=== PATIENT | male | born 1960 | race Caucasian/White ===

== ENCOUNTER → 2023-06-12 18:56 | Outpatient (REF) | payer MEDICARE, SELFPAY | LOC: MRI 18:56 | PROVIDERS: ATTENDING PHYSICIAN Specialist; FAMILY PHYSICIAN Internal Medicine Geriatric Medicine | DX: M25.562 Pain in left knee (principal) | CPT/HCPCS: 73721 ==

== ENCOUNTER 2023-08-27 05:54 | Day surgery (SDC) | payer MEDICARE, SELFPAY ==
[2023-08-27] VITALS (11 sets, daily range): BP systolic 86–125; BP diastolic 58–80; BMI 33.0
[2023-08-27] MEDS: NORMOSOL-R 1000 IV (06:29)
[2023-08-27] MEDS: TYLENOL 1000 MG PO (06:29)
[2023-08-27 06:37] LABS: Glucose - Point of Care 122 mg/dl (70-99)
== END 2023-08-27 09:10 | disposition home or self-care (01) ==
LOC: SDS 05:54
PROVIDERS: ATTENDING PHYSICIAN Orthopaedic Surgery Hand Surgery
DX: G56.02 Carpal tunnel syndrome, left upper limb (principal)
CPT/HCPCS: 29848; 82962

== ENCOUNTER → 2023-09-16 18:24 | Outpatient (REF) | payer MEDICARE, SELFPAY | LOC: PAVMRI 18:24 | PROVIDERS: ATTENDING PHYSICIAN Specialist; FAMILY PHYSICIAN Internal Medicine Geriatric Medicine | DX: M25.561 Pain in right knee (principal) | CPT/HCPCS: 73721 ==

== ENCOUNTER → 2023-12-06 13:38 | Outpatient (REF) | payer MEDICARE, SELFPAY | LOC: SDSPAT 13:38 | PROVIDERS: ATTENDING PHYSICIAN Orthopaedic Surgery Hand Surgery; FAMILY PHYSICIAN Internal Medicine Geriatric Medicine; OTHER PHYSICIAN Internal Medicine Hematology & Oncology; OTHER PHYSICIAN Nuclear Medicine Nuclear Cardiology; OTHER PHYSICIAN Specialist | DX: M75.121 Complete rotator cuff tear or rupture of right shoulder, not specified as traumatic (principal) | CPT/HCPCS: 36415; 93005 ==

== ENCOUNTER 2023-12-18 06:16 | Day surgery (SDC) | payer MEDICARE, SELFPAY ==
[2023-12-06 13:49] VITALS: BMI 35.8
--- NOTE | 2023-12-11 15:22 | PTCARENOTE ---
Abnormal EKG reviewed by Dr. Dias, no further action requested.
[2023-12-18] VITALS (10 sets, daily range): BP systolic 113–150; BP diastolic 58–74; BMI 35.8
[2023-12-18 11:19] LABS: Glucose - Point of Care 132 mg/dl (70-99)
[2023-12-18] MEDS: TYLENOL 1000 MG PO (11:42)
[2023-12-18] MEDS: NORMOSOL-R/PLASMALYTE-A 1000 IV (11:42)
[2023-12-18] MEDS: DILAUDID 0.25 MG IV ×3 (15:01→15:23)
== END 2023-12-18 17:05 | disposition home or self-care (01) ==
LOC: SDS 06:16
PROVIDERS: ATTENDING PHYSICIAN Orthopaedic Surgery Hand Surgery; FAMILY PHYSICIAN Internal Medicine Geriatric Medicine
DX: S46.211A Strain of muscle, fascia and tendon of other parts of biceps, right arm, initial encounter (principal); X58.XXXA Exposure to other specified factors, initial encounter; M75.121 Complete rotator cuff tear or rupture of right shoulder, not specified as traumatic; M75.41 Impingement syndrome of right shoulder; M75.91 Shoulder lesion, unspecified, right shoulder
CPT/HCPCS: 23430; 29827; 29826; 82962

== ENCOUNTER → 2024-07-25 06:37 | Outpatient (REF) | payer MEDICARE, SELFPAY | LOC: PAVMRI 06:37 | PROVIDERS: ATTENDING PHYSICIAN Specialist | DX: M25.561 Pain in right knee (principal) | CPT/HCPCS: 73721 ==

== ENCOUNTER → 2024-09-22 13:07 | Outpatient (REF) | payer MEDICARE, SELFPAY | LOC: RCS 13:07 | PROVIDERS: ATTENDING PHYSICIAN Specialist; FAMILY PHYSICIAN Internal Medicine Geriatric Medicine | DX: Z01.818 Encounter for other preprocedural examination (principal) | CPT/HCPCS: 93005 ==

== ENCOUNTER 2024-12-22 19:27 | Inpatient (IN) | payer MEDICARE, SELFPAY ==
[2024-12-22] VITALS (8 sets, daily range): BP systolic 124–164; BP diastolic 60–79; BMI 36.9; BMI 37.2
--- NOTE | 2024-12-22 17:21 | EDRN ---
the pt stated he had an outpatient chest xray done at today. ER Dr Mclaughlin reviewed the pts chest xray from earlier today. Per ER Dr Mclaughlin, the pts Left chest PORT is approved to be used for medications, infusions, and bloodwork. 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
--- NOTE | 2024-12-22 17:21 | ED.GENMED ---
History of Present Illness
General
Chief Complaint: Abnormal Lab Value
Source: patient and records
Exam Limitations: none
Time Seen by Provider: 12/22/24 17:05
Nursing documentation reviewed up to this point in time: agreed with
History of Present Illness
History of Present Illness:
64-year-old male with extensive history as documented notable for renal cell carcinoma currently on immunotherapy ([place]) who presents to the ER for evaluation of chest pain and hemoptysis. Patient reports that he started having some chest
discomfort a few days ago that he attributed to muscle strain from picking up a cat. He says that over the past few days he has developed a mild cough and this morning he started having faraz mopped assist. He spoke with his primary care physician
who sent him for some outpatient testing and found an elevated D-dimer and so he was referred to the ER to be evaluated for PE. Aside from chest pain and hemoptysis he also reports some increased fatigue over the past week or so. He has not
noticed any swelling in the legs but says that he had some cramping in his legs last week. He denies any significant amount of shortness of breath. He denies any fever or chills. He denies any other acute complaints. He denies any known history
of DVT/PE. He does note that he has been doing a lot of driving recently including visiting his mother in [place] as well as his daughter in [place].
Review of Systems
Review of Systems
All Other Systems: ROS reviewed and negative except as documented in HPI and ROS
Constitutional: Reports fatigue; Denies fever
Respiratory: Reports cough and hemoptysis; Denies trouble breathing
Cardiac: Reports chest pain; Denies palpitations
ABD/GI: Denies abdominal pain
: Denies flank pain
Musculoskeletal: Reports muscle pain; Denies edema
Neurological: Denies dizzy or headache
Phy Exam
Physical Exam
Physical Exam:
General: Awake, alert, oriented x3; no acute distress
Head: Normocephalic, atraumatic
Eyes: Conjunctiva normal, sclera anicteric
Throat: Airway intact, handling secretions
Neck: Trachea midline, supple without meningismus
Lungs: Clear to auscultation bilaterally, no wheezing, rales, rhonchi
Heart: Regular rate and rhythm, no murmurs, gallops, or rubs
Abd: Soft, non distended, nontender
Neuro: Grossly intact
Skin: No rash
Extremities: Trace edema in the ankles, no significant calf tenderness, equal pulses in all extremities
Scores
Heart Failure Risk
Heart Failure Risk Score: Not Applicable
Heart Score for Chest Pain Patients
STEMI patient?: Not applicable
Withdrawal Assessment of Alcohol
Withdrawal Assessment Completed?: Not applicable
Course
Orders/Labs/Results
Orders:
Orders
12/22/24 14:54
Peripheral Venous Lwr Ext Bilat US [US Periph Venous LOWER Ext Mark] Urgent
Comment: elevated d-dimer
Reason For Exam: pain
12/22/24 17:06
CT Chest PE Study Urgent
Comment:
Reason For Exam: sob, hemoptysis
12/22/24 17:07
Electrocardiogram (*1) Urgent
Reason for Study: Chest Pain
EKG- Treatment ONCE
12/22/24 17:29
Heparin 10,000 units IV NOW STA
12/22/24 17:30
Heparin 14413 Units/250 ml 25,000 units in 250 ml IV PER PROTOCOL
Weight to be used for heparin protocol in kilograms (kg):: 126.7
Protocol:: DVT/PE
PTT Goal Range to be used:: PTT 73 to 111 seconds
Order type:: Initial
INITIAL Infusion Dose (UNITS/KG/hr) & then follow protocol:: 18 units/kg/hr
Infusion Dose in UNITS/hr & then follow protocol (UNITS/hr):: 2,000
INFUSION RATE in mL/hr & then follow protocol (mL/hr):: 20
For DVT/PE algorithm, re-bolus for low PTT?: Yes
PTT less than or equal to 64 seconds:: Re-bolus 80 units/kg (max 10,000units). Increase by 500 units/hr
(+ 5mL/hr)
PTT 64.1 to 72.9 seconds:: Re-bolus 40 units/kg (max 5,000 units). Increase by 300 units/hr
(+ 3mL/hr)
PTT 73 to 111 seconds:: Target Range. No change in rate.
PTT 111.1 to 130.9 seconds:: Decrease rate by 300 units/hr (- 3 mL/hr)
PTT 131 to 199.9 seconds:: HOLD for 1 hr. Then decrease by 400 units/hr (- 4mL/hr)
PTT greater than or equal to 200 seconds:: HOLD for 2 hrs & Notify Provider. Then decrease by 500 units/hr
(- 5mL/hr)
Lab follow-up:: Each change, PTT q6h until 2 consecutive are therapeutic. Then
PTT daily.
Nursing to Place Non Medication Order As Directed
Physician Order: PTT 6 hours after initial start of Heparin infusion
12/22/24 17:39
Complete Blood Count/With Diff Urgent
Comprehensive Metabolic Panel Urgent
PTT Urgent
Prothrombin Time Urgent
Troponin I Urgent
12/22/24 17:46
Heparin 10,000 units IV PRN PRN
Heparin 5,000 units IV PRN PRN
12/22/24 18:00
0.9% Sodium Chloride 500 ml [Nss] 500 ml IV BOLUS
12/22/24 18:30
Heparin Pf [Heparin Lock Flush] 500 unit IV PER PROTOCOL
12/23/24 00:05
PTT Urgent
Abnormal Lab Results
12/22/24
17:39
RBC 4.61 L 10^6/uL
(4.70-6.10)
RDW 15.0 H %
(11.5-14.5)
MPV 10.6 H fL
(7.4-10.4)
Absolute Neuts (auto) 8.2 H 10^3/uL
(1.4-6.5)
Absolute Monos (auto) 0.9 H 10^3/uL
(0.1-0.6)
Neutrophils % 78.4 H %
(42.2-75.2)
Lymphocytes % 11.1 L %
(20.5-51.1)
APTT 56.5 H Sec
(23.4-35.0)
Chloride 108 H mmol/L
(98-107)
Carbon Dioxide 21 L mmol/L
(22-30)
BUN 34 H mg/dl
(9-20)
Creatinine 2.1 H mg/dL
(0.7-1.3)
Glucose 115 H mg/dl
(70-99)
12/22/24 17:39
12/22/24 17:39
Vital Signs
Initial and Last Documented VS:
Initial Vital Signs
Temp Pulse Resp BP Pulse Ox
37.2 C 94 20 164/79 98
12/22/24 14:46 12/22/24 14:46 12/22/24 14:46 12/22/24 14:46 12/22/24 14:46
Last Documented Vital Signs
Temp Pulse Resp BP Pulse Ox
37.2 C 86 20 135/71 98
12/22/24 14:46 12/22/24 17:13 12/22/24 17:13 12/22/24 17:13 12/22/24 17:27
MDM/Problems Addressed
Differential Diagnosis Includes:
Hemoptysis: Pneumonia, bronchitis, PE
MDM/Problems Addressed:
64-year-old male presents for evaluation of chest pain and cough with hemoptysis as described above. Outpatient D-dimer was elevated which prompted ER referral. Vital signs are all within acceptable range here�she was hypertensive in triage but
normalized by my assessment and he has no significant tachycardia, no tachypnea or hypoxia. Physical exam is as above. In triage he was ordered for a bilateral lower extremity ultrasound that was positive for DVT in the right lower extremity.
Will plan to place an IV send labs including a CBC and a CMP, coags, troponin, proBNP. Check EKG. Will send for a CT chest to rule out PE. Will start on heparin infusion. Plan for admission pending rest of evaluation.
Patient notes that typically he receives CT scans without contrast due to history of renal cell cancer and only having a single kidney with some chronic kidney disease. I think in this case very high clinical concern for pulmonary embolism the risk
of contrast study is outweighed by benefit of obtaining more information about potentially life-threatening diagnosis of pulmonary embolism. Will proceed with contrast-enhanced study and provide IV fluids alongside scan. Discussed at length with
patient.
CT called back by radiology: Positive for pulmonary embolism. There is some opacity in the right lower lobe possible developing infarct. No signs of heart strain on CT. His troponin is negative. No oxygen requirement, normal blood pressure.
Suspect that he would not be a candidate for thrombolysis; patient on heparin infusion�reviewed with pulmonology for any further recommendations. Case discussed with hospitalist for admission.
Chronic conditions affecting care:
Renal cell carcinoma
*Radiology
Radiology exam reviewed: radiology read reviewed
*Pulse Oximetry
SaO2: 98
Oxygen Mode of Delivery: Room air
Patient hypoxic: no (98%)
*EKG
Interpreted by ED Provider?: Yes
Heart Rate: 85
Rate: normal
Rhythm: sinus
[place]: left axis deviation
Interval: normal interval
QRS Pattern: normal QRS
Ischemia: no ischemia
*Critical Care Note
Total Time (30-74mins, 75-104mins- exclusive of procedures): Not Applicable
Data Reviewed
Review of Other/Old Records Reveals: Labs and Records
Source: patient and records
Patient Management
Discussion with other providers: Hospitalist (Discussed with hospitalist), Roll Coverer (Discussed with pulmonology) and Radiologist (Discussed with radiologist)
Escalation/DeEscalation of care consider admission/obs:
Admission indicated
ED Attending Note
-
Portions of this chart may have been created with voice recognition software.� Occasional wrong word or��sound alike� substitutions may have occurred due to the inherent limitations of voice recognition software.
Discharge Plan
Departure
Patient Disposition: Admit
Date of Disposition: 12/22/24
Time of Disposition: 18:50
Admit to doctor: Dwayne
Presentation/result/management discussed w/ accepting MD/DO: Hospitalist
Discharge Problem:
Pulmonary embolism, DVT (deep venous thrombosis)
Prescriptions:
No Action
amlodipine 10 mg Tablet
10 mg PO DAILY
potassium citrate 15 mEq Tablet Extended Release
15 meq PO BID
Keytruda 25 mg/mL Solution
400 mg IV Q6W
Rx Instructions:
Next dose: 01/08/2024
cyanocobalamin (vitamin B-12) 1,000 mcg Tablet
1,000 mcg PO DAILY
lisinopril 40 mg Tablet
20 mg PO HS
cholecalciferol (vitamin D3) [Vitamin D3] 25 mcg (1,000 unit) Tablet
25 mcg PO DAILY
Inlyta 1 mg Tablet
2 mg PO BID
coQ10 (ubiquinol) 100 mg Capsule
100 mg PO DAILY
levothyroxine 50 mcg Tablet
50 mcg PO DAILY
rosuvastatin 20 mg Tablet
20 mg PO HS
glucosamine-chondroitin 750-600 mg Tablet
1 tab PO BID
Probiotic Complex 25 billion cell -100 mg Capsule
1 cap PO BID
dapagliflozin propanediol [Farxiga] 10 mg Tablet
10 mg PO HS
omega 2-awm-miv-fish oil [Fish Oil] 1,200 (144-216) mg Capsule
2 cap PO DAILY
Rx Instructions:
2400mg
Referrals:
Crino,Blaze, MANAGER SUMMER [Family Provider, General]
Interventions
Interventions:
*Risk Screen - Suicide Last Done: 12/22/24 17:38
*General Assessment Last Done: 12/22/24 17:38
*Neglect/Abuse Screening Last Done: 12/22/24 17:38
*ED- Fall Risk Assessment Last Done: 12/22/24 17:38
*ED COVID-19 Vaccine History Last Done: 12/22/24 17:38
Discharge Date and Time
Print Language: ARABIC
[2024-12-22 17:56] LABS: Hematocrit 40.7 % (39.0-52.0); Hemoglobin 13.7 g/dL (13.0-18.0); Mean Corp Hgb Conc. 33.7 g/dL (33.0-37.0); Mean Corpuscular Volume 88.3 fL (80.0-94.0); Nucleated Red Blood Cells % 0 % (-); Platelet Count 158 10^3/uL (130-400); Red Cell Dist. Width 15.0 % (11.5-14.5)
[2024-12-22] MEDS: HEPARIN 10000 UNITS IV (18:05)
[2024-12-22 18:06] LABS: INR 1.07; PT 14.3 Sec (11.4-14.6)
[2024-12-22] MEDS: HEPARIN 25000 UNITS/250 ML IV (18:06)
[2024-12-22 18:08] LABS: APTT 56.5 Sec (23.4-35.0)
[2024-12-22 18:10] LABS: Troponin I < 0.012 ng/ml
[2024-12-22 18:14] LABS: ALT (SGPT) 28 U/L (0-50); AST (SGOT) 24 U/L (17-59); Albumin 3.7 g/dl (3.5-5.0); Alkaline Phosphatase 56 U/L (38-126); Blood Urea Nitrogen 34 mg/dl (9-20); Calcium 9.3 mg/dl (8.4-10.2); Carbon Dioxide 21 mmol/L (22-30); Chloride 108 mmol/L (98-107); Estimated Creatinine Clearance 48 ml/min; Glucose 115 mg/dl (70-99); Potassium 4.3 mmol/L (3.5-5.1); Sodium 135 mmol/L (135-145); Total Protein 6.3 g/dl (6.3-8.2); eGFR 34.08
[2024-12-22] MEDS: NSS 500 IV (18:41)
--- NOTE | 2024-12-22 18:49 | HPS.HSE ---
Addendum entered and electronically signed by Ted Rice MD 12/22/24 19:37:
This is an addendum to the H&P written by Brandi Del Toro on 12/22/2024. �Patient seen and examined independently with PRODUCTION LINE WELDER.
64-year-old male past medical history of hypertension, hyperlipidemia, asthma, obstructive sleep apnea, diabetes, diverticulosis, hemorrhoids, nephrolithiasis, IBS, peripheral neuropathy, osteoarthritis, renal cell carcinoma with pulmonary
metastases status post right nephrectomy, removal of right adrenal gland and lymph node excision on Inlyta/Keytruda CKD, eczema, psoriasis, hearing impairment, obesity, presenting with chest pain and coughing up blood. �Also with fatigue for the
past week. �No swelling in the legs but cramping in the legs last week.
He takes breaks from Inlyta currently on hold due to diarrhea.�
He recently drove to his mother [place] as well as daughter in [place].
He had outpatient testing which showed elevated D-dimer and sent to the emergency room for evaluation of pulm embolism.
Vital signs normal.
Labs show stable chronic kidney disease.
EKG shows normal sinus rhythm, low voltage QRS. �Chest x-ray shows right sided perihilar infiltrate likely pneumonia. �CT PE shows pulmonary embolism small to moderate volume most prominently extending into the right lower lobe pulmonary artery
branches. �No right heart strain. �Some right lower lobe opacification could represent subsegmental atelectasis cannot exclude developing pulmonary infarct. �Venous ultrasound shows extensive right lower extremity DVT.
Provoked pulmonary embolism /RLE DVT secondary to renal cell carcinoma vs Inlyta/Keytruda. Heparin drip. �Check echo, pulmonary consult.
Original Note:
Family Physician
-
Family Physician: RIOS Espinoza
Chief Complaint
-
sob, chest pain
History of Present Illness
64-year-old male with PMH for renal cell carcinoma currently on immunotherapy ([employer]), brain lesions, received radiation therapy last May, hypothyroidism, type 2 DM, who presents to the ER for evaluation of right sided chest pain and
hemoptysis. Patient reports that he started having some chest discomfort a few days ago. He says that over the past few days he has developed a mild cough and this morning noted hemoptysis. he was evaluated at PCP, and noted to have elevated D
dimer as outpatient. he was referred to the ER to be evaluated for PE. He denies any significant amount of shortness of breath. He denies any fever or chills. he denied SPEAR, dizzy or syncope. denied abdominal pain,nv,d. denied dysuria or hematuria.
he is been driving a lot more than usual. recent was to [place]
upon arrival he was noted to have DVT and PE. heparin initiated in ER. admitting for further management.
Medical History
Past Medical History
Past Medical History: Reports Other
Additional Past Medical History:
Hypertension, hyperlipidemia, diverticulosis, colon polyps, sleep apnea, asthma, neuropathy, renal cell carcinoma, pulmonary metastatic nodules, mediastinal lymphadenopathy, diabetes, CKD stage IIIb, nonobstructive CAD, solitary kidney,
Past Surgical History: Reports Other
Additional Past Surgical History:
Appendectomy, hemorrhoid banding, right nephrectomy, left ureteral stent placement, r, dental implant, bilateral cataract surgery, rotator cuff repair, left kidney stent placement, left kidney stone removal, lithotripsy
Social History
Tobacco: Non-smoker
Alcohol: Occasional
Drug: None
Personal:
Living: With Family
Family History
Family History: Not pertinent
Allergies / Home Medications
Allergies reflects when Allergies were last updated in [facility].
Home Medications with original date entered in [facility]
Allergy/Medication List:
Allergies
Allergy/AdvReac Type Severity Reaction Status Date / Time
almond Allergy GI upset, Verified 12/22/24 14:47
nausea
dexamethasone Allergy Nausea / Verified 12/22/24 14:47
Vomiting
sesame oil Allergy Anaphylaxis Verified 12/22/24 14:47
sesame paste Allergy Anaphylaxis Uncoded 12/22/24 14:47
sesame seed Allergy Anaphylaxis Uncoded 12/22/24 14:47
Home Medications
amlodipine 10 mg tablet 10 mg PO DAILY 04/01/23
cholecalciferol (vitamin D3) 25 mcg (1,000 unit) tablet (Vitamin D3) 25 mcg PO DAILY 04/01/23
cyanocobalamin (vitamin B-12) 1,000 mcg tablet 1,000 mcg PO DAILY 04/01/23
lisinopril 40 mg tablet 20 mg PO HS 04/01/23
pembrolizumab 25 mg/mL intravenous solution (Keytruda) 400 mg IV Q6W 04/01/23
potassium citrate 15 mEq (1,620 mg) tablet,extended release 15 meq PO BID 04/01/23
axitinib 1 mg tablet (Inlyta) 2 mg PO BID 08/22/23
coQ10 (ubiquinol) 100 mg capsule 100 mg PO DAILY 08/22/23
levothyroxine 50 mcg tablet 50 mcg PO DAILY 08/22/23
rosuvastatin 20 mg tablet 20 mg PO HS 08/22/23
L.acidophilus-B.animalis-B.bifidum 25 billion cell-FOS 100 mg capsule (Probiotic Complex) 1 cap PO BID 12/09/23
dapagliflozin propanediol 10 mg tablet (Farxiga) 10 mg PO HS 12/09/23
glucosamine-chondroitin 750 mg-600 mg tablet 1 tab PO BID 12/09/23
omega 2-lhp-gzo-fish oil 1,200 mg (144 mg-216 mg) capsule (Fish Oil) 2 cap PO DAILY 12/09/23
Review of Systems
-
Constitutional: Reports No Symptoms
EENT: Reports No Symptoms
Respiratory: Reports Cough and Hemoptysis
Cardiac: Reports Chest Pain
Abdomen/GI: Reports No Symptoms
: Reports No Symptoms
Musculoskeletal: Reports No Symptoms
Skin: Reports No Symptoms
Neurological: Reports No Symptoms
Endocrine: Reports No Symptoms
Hematologic/Lymphatic: Reports No Symptoms
Psych: Reports No Symptoms
Physical Exam
Vital Signs
Vital Signs
Temp Pulse Resp BP Pulse Ox
98.9 F 86 20 135/71 98
12/22/24 14:46 12/22/24 17:13 12/22/24 17:13 12/22/24 17:13 12/22/24 17:27
Physical Exam
General: Well Developed, Well Nourished and No Apparent Distress
HEENT: NormoCephalic, Moist mucous membranes and Atraumatic
Respiratory: Clear
Cardiac: S1/S2 and Regular Rhythm; No Murmur or Rub
GI: Soft, Non Tender, Non Distended and Normal Bowel Sounds; No Organomegaly
Rectal: Deferred by Provider
Musculoskeletal: No Clubbing, No Cyanosis and No Edema
Skin: No Rash
Neuro: AO x 3 and Nonfocal/grossly intact
Psych: Calm
Laboratory Results
-
12/22/24 17:39
12/22/24 17:39
Laboratory Results
PT 14.3 Sec (11.4-14.6) 12/22/24 17:39
INR 1.07 12/22/24 17:39
APTT 56.5 Sec (23.4-35.0) H 12/22/24 17:39
Total Bilirubin 0.8 mg/dl (0.2-1.3) 12/22/24 17:39
AST 24 U/L (17-59) 12/22/24 17:39
ALT 28 U/L (0-50) 12/22/24 17:39
Alkaline Phosphatase 56 U/L (38-126) 12/22/24 17:39
Troponin I < 0.012 ng/ml 12/22/24 17:39
Data Reviewed
-
Diagnostic Radiology: Report Reviewed by me
Lab Data: Labs Reviewed by me
Impression/Plan
-
# provoked Right lower extremity DVT/pulmonary embolism
- Heparin drip continue
- Pulmonology consult
- Duplex with impression of Extensive right lower extremity deep venous thrombosis
- CT PE pending
# Chronic kidney disease [id number]
- Creatinine 2.1, monitor BMP
# Hypothyroidism
- Levothyroxine continue
# Type 2 diabetes
- Farxiga and repaglinide
- Sliding scale
- CHO diet
# History of renal cell carcinoma on immunotherapy
-History of brain lesion, last radiation in May, he is due for MRI in few weeks
- Last immunotherapy on 12/10, next due in 6-week
- He is on Inlyta which is on hold until due to diarrhea
-he takes lisinopril along with Inlyta to manage BP
# Hyperlipidemia
- Statin continue
#Sleep apnea
-own CPAP
# CODE STATUS
- Full code
[2024-12-22 21:37] LABS: Glucose - Point of Care 174 mg/dl (70-99)
[2024-12-22] MEDS: UROCIT-K 15 MEQ PO (22:59)
[2024-12-22] MEDS: CRESTOR 20 MG PO (23:00)
[2024-12-22] MEDS: FARXIGA 10 MG PO (23:00)
--- NOTE | 2024-12-22 23:37 | PTCARENOTE ---
Pt received from ED RN on heparin gtt going at 20ml/hr. Pt AAOx4 able to make needs known. Pt spo2 97% ra respiration even unlabored. Pt concerned about pharmacy having medication called Inlyta. Pharmacy confirming they do not carry that medication.
Pt informed to have bring in Inlyta to be sent to pharmacy. Pt has no other concerns at this time. Call carter within reach.
[2024-12-23] VITALS (11 sets, daily range): BP systolic 110–142; BP diastolic 57–76; BMI 36.2
[2024-12-23 01:00] LABS: APTT > 200 Sec (23.4-35.0)
[2024-12-23] MEDS: SYNTHROID 50 MCG PO (05:53)
[2024-12-23] MEDS: TYLENOL 650 MG PO (05:55)
--- NOTE | 2024-12-23 06:07 | PTCARENOTE ---
Pt remains on ra spo2 95-98%. Pt having one episode of hemoptysis this AM. Heparin gtt continues at 15ml/hr.
[2024-12-23 08:46] LABS: Glucose - Point of Care 108 mg/dl (70-99)
[2024-12-23] MEDS: PRANDIN 1 MG PO ×3 (08:55→16:49)
[2024-12-23] MEDS: PROTONIX 40 MG PO (08:55)
[2024-12-23] MEDS: UROCIT-K 15 MEQ PO ×2 (08:56→20:02)
[2024-12-23 09:17] LABS: Hematocrit 37.9 % (39.0-52.0); Hemoglobin 12.5 g/dL (13.0-18.0); Mean Corp Hgb Conc. 33.0 g/dL (33.0-37.0); Mean Corpuscular Volume 86.5 fL (80.0-94.0); Nucleated Red Blood Cells % 0 % (-); Platelet Count 164 10^3/uL (130-400); Red Cell Dist. Width 15.0 % (11.5-14.5)
[2024-12-23 09:52] LABS: INR 1.18; PT 15.5 Sec (11.4-14.6)
[2024-12-23 09:55] LABS: APTT 121.1 Sec (23.4-35.0)
[2024-12-23 10:21] LABS: Blood Urea Nitrogen 30 mg/dl (9-20); Calcium 9.1 mg/dl (8.4-10.2); Carbon Dioxide 20 mmol/L (22-30); Chloride 107 mmol/L (98-107); Estimated Creatinine Clearance 53 ml/min; Glucose 112 mg/dl (70-99); Potassium 4.7 mmol/L (3.5-5.1); Sodium 132 mmol/L (135-145); eGFR 38.42
--- NOTE | 2024-12-23 10:47 | CM ---
Addendum entered by Yolande Mae 12/23/24 11:05:
Correction, patient has outpatient PT in the past and said that his CPAP machine is from a company called [employer].
Original Note:
Initial Assessment Completed by ISABEL Lanier.
Patient lives with his in a 2 story home with a full basement, 2 bathrooms on the second floor, powder room on the first, No DME, but uses a CPAP machine that he brought himself to the hospital.
Patient had Home PT in the past, but no Acute or SNF.
PCP: Dr. Katia Rosado
Pharmacy: [facility] in [facility]
Patient is independent with ADL's and was told to come to the hospital after PCP reviewed his labs. RN stated that patient is on a heparin drip and will go for MRI for concern of brain METS re: his renal cancer.
PLAN: Likely home with no needs or VN services.
[2024-12-23 11:11] LABS: Glycohemoglobin (HgbA1c) 6.8 % (4.0-5.6)
--- NOTE | 2024-12-23 12:33 | CON.PUL ---
Addendum entered and electronically signed by Irma Bryant MD 12/23/24 14:14:
MRI results reviewed. Contacted radiation oncology service at [facility], d/w Dr. Garcia. We discussed the current MRI findings and compared with the last MRI. Since lesions have been treated with radiation, Dr. Garcia favored treating large
DVT and PE with anticoagulation, with plan to resume follow up as out patient.
- Transition to Eliquis 10 mg later tonight. Anticipate d/c in AM.
Original Note:
Consultation
Consultation Request
Date/Time Consultation Requested: 12/22/2024
Date/Time Consultation Performed: 12/23/2024
Medical History
-
Chief Complaint: Chest pain, dyspnea
History of Present Illness:
Patient is a very pleasant 66-year-old gentleman with known history of renal cell carcinoma, metastatic currently on immunotherapy with brain metastasis who presented to emergency room for evaluation of right-sided pleuritic chest pain and trace
hemoptysis. Patient over the last 4 days reports an episode of cramping of his right leg and also developing some right-sided chest discomfort which tend to be worse when he takes a deep breath. He reported mild cough and trace hemoptysis. He had
an outpatient D-dimer tested which was elevated and he was referred to emergency room for further evaluation. Workup here included a right lower extremity DVT noted on Doppler examination and also right-sided pulmonary embolism with pulmonary
infiltrates concerning for infarction as well as trace right-sided pleural effusion. Patient was admitted to the hospitalist service and was started on IV heparin. Pulmonary consultation was requested for further input.
Patient denies any prior history of DVT or PE. No family history of VTE events either. Patient reports driving to [place] which included about a 4-hour drive and having an episode of cramping in his right leg which I suspect might be the initial
presentation of his DVT noted in the right leg. He also drove to [place]. No recent hospitalization or surgeries or prolonged immobility reported otherwise.
Past Medical History
Past Medical History: Reports Other
Additional Past Medical History:
Hypertension, hyperlipidemia, diverticulosis, colon polyps, sleep apnea, asthma, neuropathy, renal cell carcinoma, pulmonary metastatic nodules, mediastinal lymphadenopathy, diabetes, CKD stage IIIb, nonobstructive CAD, solitary kidney,
Past Surgical History: Reports Other
Additional Past Surgical History:
Appendectomy, hemorrhoid banding, right nephrectomy, left ureteral stent placement, r, dental implant, bilateral cataract surgery, rotator cuff repair, left kidney stent placement, left kidney stone removal, lithotripsy
Social History
Tobacco: Non-smoker
Alcohol: Occasional
Drug: None
Personal:
Living: With Family
Family History
Family History: Not pertinent
Allergies / Home Medication
Allergies / Home Medications
Allergies
Allergy/AdvReac Type Severity Reaction Status Date / Time
sesame oil Allergy Anaphylaxis Verified 12/22/24 20:57
almond AdvReac GI upset, Verified 12/22/24 20:57
nausea
dexamethasone AdvReac Nausea / Verified 12/22/24 20:57
Vomiting
Home Medications
�Medication �Instructions �Recorded �Confirmed �Last Taken �Type
cholecalciferol (vitamin D3) 25 25 mcg PO DAILY Supplement 04/01/23 12/22/24 12/13/23 History
mcg (1,000 unit) tablet (Vitamin
D3)
cyanocobalamin (vitamin B-12) 1,000 mcg PO DAILY Supplement 04/01/23 12/22/24 12/13/23 History
1,000 mcg tablet
lisinopril 40 mg tablet 20 mg PO HS Blood Pressure 04/01/23 12/22/24 12/13/23 History
potassium citrate 15 mEq (1,620 15 meq PO BID Electrolyte Repletion 04/01/23 12/22/24 12/17/23 08:00 History
mg) tablet,extended release
axitinib 1 mg tablet (Inlyta) 2 mg PO BID Cancer 08/22/23 12/22/24 12/13/23 History
coQ10 (ubiquinol) 100 mg capsule 100 mg PO DAILY Supplement 08/22/23 12/22/24 12/13/23 History
levothyroxine 50 mcg tablet 50 mcg PO DAILY Thyroid 08/22/23 12/22/24 12/18/23 History
rosuvastatin 20 mg tablet 20 mg PO HS High Cholesterol 08/22/23 12/22/24 12/16/23 20:00 History
dapagliflozin propanediol 10 mg 10 mg PO HS Heart Disease/Condition 12/09/23 12/22/24 12/13/23 History
tablet (Farxiga)
glucosamine-chondroitin 750 mg-600 1 tab PO BID Supplement 12/09/23 12/22/24 12/13/23 History
mg tablet
repaglinide 1 mg tablet 1 mg PO TID @ 0800,1200,1700 12/22/24 12/22/24 Unknown History
Diabetes
Review of Systems
-
Hematologic/Lymphatic: Other (All 14 systems reviewed and negative except as stated above in the history of present illness.)
Vitals / Labs / Diagnostic Testing
Vital Signs
Temp Pulse Resp BP Pulse Ox
98.3 F 73 18 131/67 91
12/23/24 11:08 12/23/24 10:00 12/23/24 10:00 12/23/24 10:00 12/23/24 08:00
Lab Data
12/23/24 09:06
12/23/24 09:06
Laboratory Results
12/22/24 12/23/24 12/23/24
17:39 00:00 00:16
PT 14.3
INR 1.07
APTT 56.5 H Cancelled > 200 H*
12/23/24
09:06
PT 15.5 H
INR 1.18
APTT 121.1 H
Diagnostic Testing:
Physical Exam
-
HEENT: Normocephalic
Cardiovascular: S1/S2
Respiratory: Clear and Other (Right sided pleuritic discomfort mostly in the posterior lower lobe)
GI: Soft and Non Distended
Neurology: Awake and Alert
Skin: Warm
General: Comfortable
Assessment
-
#1. Acute DVT and PE
- Underlying risk factor include metastatic renal cell carcinoma as well as recent car rides to [place] in [place] requiring 4 hours of [address] on certain days.
- Patient currently on heparin tolerating well. No RV strain noted on imaging, troponin is normal. Patient is hemodynamically stable and not requiring any supplemental oxygen
- With patient's prior history of brain metastasis, will proceed with MRI brain with and without contrast for further evaluation before transitioning the patient to oral anticoagulants.
- In the setting of underlying malignancy, likely patient patient will need long-term anticoagulation. 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.
#2. Pulmonary infiltrate, suspect infarction with trace pleural effusion
- Pulmonary infiltrates appear to be in the same part of the lung as affected by pulmonary embolism. Otherwise no cough, normal WBC count and patient is afebrile, hold off antibiotics for now. Saturating 91 to 96% on room air.
- This will need to be followed radiologically and clinically as outpatient
#3. h/o Renal cell CA with brain metastasis
- Chronically has been on Inlyta and Keytruda. S/p right nephrectomy in 07/2022.
- S/p radiation therapy for brain metastasis
- Follows up with oncologist both medical and radiation at [facility]
#4. H/o MARISELA on CPAP
- Follows up with [facility] pulmonary clinic
- Continue nightly CPAP
#5. H/o Childhood asthma
- Resolved as he grew up, no current symptoms suggestive of hyperreactive airway disease
Other medical diagnoses:
- Hyperlipidemia
- Hypothyroidism
- Diabetes
- Chronic kidney disease
- Obesity with BMI 36.2
Total time spent on this consultation/encounter _85___ minutes which includes review of history, physical exam, medications, laboratory data, personal review of imaging, extensive review of outpatient records, discussion with care team and
respiratory therapy
Data:
CT-PE 12/2024: Findings compatible with pulmonary embolism, small to moderate volume, most prominent extending into right lower lobe pulmonary arterial branches, as noted above.
No findings to suggest right heart strain.
Some right lower lobe opacification at least in part could represent subsegmental atelectasis, cannot exclude developing pulmonary infarct. Likely tiny right pleural effusion.
US LE 12/2024: Extensive right lower extremity deep venous thrombosis
[facility] 03/2023: 1. Nonobstructive coronary artery disease with recent normal Lexiscan Myoview stress study
ECHO 10/2022: Normal left ventricular size, wall thickness and systolic function. No regional
wall motion abnormalities are seen. LV ejection fraction is 55-60% by Benson's
method of discs. Normal diastolic function.
Normal right ventricular size and function.
No significant valvular disease.
No prior study available for comparison.
[2024-12-23 12:54] LABS: Glucose - Point of Care 132 mg/dl (70-99)
--- NOTE | 2024-12-23 12:57 | W.PN.HOSP.TC ---
Today's Communication/Plan
-
MRI of the brain pending
Start patient on IV fluids
Continue with heparin infusion
Echo pending
Assessment / Plan
Assessment / Plan
General: Well Developed, Well Nourished and No Apparent Distress
HEENT: NormoCephalic, Moist mucous membranes and Atraumatic
Respiratory: Clear, able to speak in complete sentences, not tachypneic, port noted
Cardiac: S1/S2 and Regular Rhythm; No Murmur or Rub
GI: Soft, Non Tender, Non Distended and Normal Bowel Sounds; No Organomegaly
Rectal: Deferred by Provider
Musculoskeletal: Mild right lower extremity edema
Skin: No Rash
Neuro: AO x 3 and Nonfocal/grossly intact
Psych: Calm
# Acute extensive right lower extremity DVT and bilateral pulmonary embolism
#Pulmonary infiltrate suspected infarction
-Underlying risk factor in this case includes malignancy and recent car travel
- Heparin drip continue
- Pulmonology consult
- Duplex with impression of Extensive right lower extremity deep venous thrombosis
- CAT scan noted and no IV strain. Troponin negative. Not on oxygen. Echo pending.
- Discussed with pulmonary. Plan to continue heparin drip. MRI of the brain pending.
# History of renal cell carcinoma on immunotherapy with metastasis to brain and lungs
- History of brain lesion, last radiation in May, he is due for MRI in few weeks
- Last immunotherapy on 12/10, next due in 6-week
- He is on Inlyta which is on hold until due to diarrhea
- he takes lisinopril along with Inlyta to manage BP
- Patient had MRI on October 07 which showed patient with 2 brain lesion which were right frontal lobe and right parietal cortex. One of the lesion was decreasing in size.
- Patient follows at [facility].
# Chronic kidney disease [id number]
- Start patient on IV fluids as received IV contrast.
# Hypothyroidism
- Levothyroxine continue
# Type 2 diabetes
- Farxiga and repaglinide
- Sliding scale
- CHO diet
# Hyperlipidemia
- Statin continue
# Obstructive sleep apnea
-own CPAP
# CODE STATUS
- Full code
Discussed with pulmonary
Anticipated Discharge: > 48 hours
Subjective/Interval History
-
Date of Service: December 23, 2024
states episode of coughing earlier today -with blood in it
denies RLE pain
Objective Data
-
Labs:
Laboratory Results
12/23/24 12/23/24 12/23/24
00:00 00:16 09:06
WBC 9.7
Hgb 12.5 L
Hct 37.9 L
Plt Count 164
PT 15.5 H
INR 1.18
APTT Cancelled > 200 H* 121.1 H
Sodium 132 L
Potassium 4.7
Chloride 107
Carbon Dioxide 20 L
BUN 30 H
Creatinine 1.9 H
Glucose 112 H
Calcium 9.1
12/23/24
16:30
WBC
Hgb
Hct
Plt Count
PT
INR
APTT Pending
Sodium
Potassium
Chloride
Carbon Dioxide
BUN
Creatinine
Glucose
Calcium
Vital Signs:
Vital Signs
Temp Pulse Resp BP Pulse Ox
98.3 F 73 18 131/67 91
12/23/24 11:08 12/23/24 10:00 12/23/24 10:00 12/23/24 10:00 12/23/24 08:00
I&O
12/22/24 12/23/24 12/24/24
06:59 06:59 06:59
Intake Total 340 / 340
Output Total 650 / 650 450 / 450
Balance -310 / -310 -450 / -450
[2024-12-23] MEDS: HEPARIN 25000 UNITS/250 ML IV (13:01)
[2024-12-23] MEDS: LR 1000 IV (13:01)
--- NOTE | 2024-12-23 14:59 | PN.CDI ---
CDI
- -
CDI:
Physician Documentation Request
Admit Date: 12/22/24 19:27
Dear Doctor Reta,
Clinical Indicators:
Patient admitted with acute right lower extremity DVT and bilateral pulmonary embolism.
PMH includes renal cell carcinoma with brain/lung metastasis
Sodium level:
12/23/24
09:06
Sodium 132 L
Based on the above, could you clarify in the progress notes, the appropriate diagnosis, if significant, that supports the above abnormalities and additional evaluation, monitoring and/or treatment rendered:
Hyponatremia
Abnormal lab value, clinically insignificant
Other, please specify
Use of terms such as suspected, likely, concern for, or probable (associated with a specific diagnosis that is being evaluated, monitored, or treated as if it exists) are acceptable and can be coded in the inpatient setting, when documented at the
time of discharge.
Thank you,
STEPHANIE Smith
CDI Specialist
available via tiger text
Please use your independent medical judgment in providing your response.
[2024-12-23 17:14] LABS: Glucose - Point of Care 103 mg/dl (70-99)
[2024-12-23 17:15] LABS: APTT 77.4 Sec (23.4-35.0)
[2024-12-23] MEDS: ELIQUIS 10 MG PO (20:01)
[2024-12-23] MEDS: FARXIGA 10 MG PO (20:03)
[2024-12-23] MEDS: CRESTOR 20 MG PO (20:03)
[2024-12-23 22:12] LABS: Glucose - Point of Care 203 mg/dl (70-99)
[2024-12-24] VITALS: BP 131/66
[2024-12-24] MEDS: LR 1000 IV (01:14)
[2024-12-24 02:00] VITALS: BP 117/64
[2024-12-24 04:00] VITALS: BP 119/62
[2024-12-24 04:25] LABS: Hematocrit 35.7 % (39.0-52.0); Hemoglobin 11.9 g/dL (13.0-18.0); Mean Corp Hgb Conc. 33.3 g/dL (33.0-37.0); Mean Corpuscular Volume 86.7 fL (80.0-94.0); Nucleated Red Blood Cells % 0 % (-); Platelet Count 159 10^3/uL (130-400); Red Cell Dist. Width 15.0 % (11.5-14.5)
[2024-12-24 04:34] LABS: INR 1.31; PT 16.8 Sec (11.4-14.6)
--- NOTE | 2024-12-24 04:53 | PTCARENOTE ---
Caring for pt overnight. aaox3, pleasant. Heparin drip off at 8p, eliquis PO started. VSS. NSR. Remains RA, own cpap hs. occasionally c/o chest pain when coughing which pt states is not new. OOB to BR, minimal assistance. LR running. No other
issues, will monitor.
[2024-12-24 05:13] LABS: Blood Urea Nitrogen 32 mg/dl (9-20); Calcium 8.9 mg/dl (8.4-10.2); Carbon Dioxide 21 mmol/L (22-30); Chloride 108 mmol/L (98-107); Estimated Creatinine Clearance 56 ml/min; Glucose 76 mg/dl (70-99); Potassium 4.3 mmol/L (3.5-5.1); Sodium 134 mmol/L (135-145); eGFR 41.00
[2024-12-24] MEDS: SYNTHROID 50 MCG PO (05:20)
[2024-12-24] MEDS: TYLENOL 650 MG PO (05:21)
[2024-12-24 06:00] VITALS: BP 117/69
[2024-12-24 07:55] LABS: Glucose - Point of Care 100 mg/dl (70-99)
[2024-12-24 08:00] VITALS: BP 118/72
[2024-12-24] MEDS: ELIQUIS 10 MG PO (08:13)
[2024-12-24] MEDS: UROCIT-K 15 MEQ PO (08:13)
[2024-12-24] MEDS: PRANDIN 1 MG PO ×2 (08:13→12:03)
[2024-12-24] MEDS: PROTONIX 40 MG PO (08:13)
--- NOTE | 2024-12-24 08:42 | W.PN.HOSP.TC ---
Addendum entered and electronically signed by Josh Mcduffie MD 12/24/24 13:39:
Mild hyponatremia which improved.
Original Note:
Today's Communication/Plan
-
Continue with Eliquis
Outpatient follow-up with oncology
Assessment / Plan
Assessment / Plan
General: Well Developed, Well Nourished and No Apparent Distress
HEENT: NormoCephalic, Moist mucous membranes and Atraumatic
Respiratory: Clear, able to speak in complete sentences, not tachypneic, port noted
Cardiac: S1/S2 and Regular Rhythm; No Murmur or Rub
GI: Soft, Non Tender, Non Distended and Normal Bowel Sounds; No Organomegaly
Rectal: Deferred by Provider
Musculoskeletal: Mild right lower extremity edema
Skin: No Rash
Neuro: AO x 3 and Nonfocal/grossly intact
Psych: Calm
# Acute extensive right lower extremity DVT and bilateral pulmonary embolism
#Pulmonary infiltrate suspected infarction
-Underlying risk factor in this case includes malignancy and recent car travel
- Heparin drip discontinued
- Pulmonology consult
- Duplex with impression of Extensive right lower extremity deep venous thrombosis
- CAT scan noted and no RV strain. Troponin negative. Not on oxygen. Echo no RV strain.
- Pulmonary discussed with patient radiation oncologist and okay to transition to Eliquis.
- PESI Class IV, High Risk: 4.0-11.4% 30-day mortality in this group.
- Patient has upcoming appointment with his oncologist at [facility].
# History of renal cell carcinoma on immunotherapy with metastasis to brain and lungs
- History of brain lesion, last radiation in May, he is due for MRI in few weeks
- Last immunotherapy on 12/10, next due in 6-week
- He is on Inlyta which is on hold until due to diarrhea
- he takes lisinopril along with Inlyta to manage BP
- Patient had MRI on October 07 which showed patient with 2 brain lesion which were right frontal lobe and right parietal cortex. One of the lesion was decreasing in size.
- MRI brain w/wo 12/23/24-Intratracheal metastatic disease with a 5 mm peripherally enhancing lesion in the inferior right frontal lobe with associated mild surrounding edema. There is additional punctate enhancing focus within the inferior left
occipital lobe consistent with an additional small metastasis.
Patient has copy of the CD. Results were discussed with the patient at bedside in detail.
- Patient follows at [facility].
# Mild ALESHIA on chronic kidney disease [id number]
- Start patient on IV fluids as received IV contrast. Creatinine d down trended to 1.8.
# Hypothyroidism
- Levothyroxine continue
# Type 2 diabetes
- Farxiga and repaglinide
- Sliding scale
- CHO diet
# Hyperlipidemia
- Statin continue
# Obstructive sleep apnea
-own CPAP
# CODE STATUS
- Full code
Discussed with pulmonary okay for discharge
More than 30 minutes spent in discharge including
Final examination of the patient
Summarizing hospital stay
Instructions for continuing care to all relevant caregivers
Preparation of discharge records, prescriptions, and referral forms
Total time spent (in minutes): 52
Anticipated Discharge: Today
Subjective/Interval History
-
Date of Service: December 24, 2024
No overnight events
Ambulating in room without any difficulty
Remains on room air
Blood pressure stable
Denies any chest pain or right lower extremity pain.
Objective Data
-
Labs:
Laboratory Results
12/24/24
04:17
WBC 9.7
Hgb 11.9 L
Hct 35.7 L
Plt Count 159
PT 16.8 H
INR 1.31
Sodium 134 L
Potassium 4.3
Chloride 108 H
Carbon Dioxide 21 L
BUN 32 H
Creatinine 1.8 H
Glucose 76
Calcium 8.9
Vital Signs:
Vital Signs
Temp Pulse Resp BP Pulse Ox
98.7 F 65 23 119/62 94
12/24/24 07:23 12/24/24 04:00 12/24/24 04:00 12/24/24 04:00 12/24/24 04:00
I&O
12/23/24 12/24/24 12/25/24
06:59 06:59 06:59
Intake Total 340 / 340
Output Total 650 / 650 1000 / 1000
Balance -310 / -310 -1000 / -1000
[2024-12-24 10:42] VITALS: BP 131/68
--- NOTE | 2024-12-24 11:11 | CM ---
Following up on patient.
Patient ready for discharge according to the Medial Attending and has no needs. IMM completed and patient has transportation home.
PLAN: Home no needs.
--- NOTE | 2024-12-24 11:13 | W.DCSUMMARY ---
Discharge Summary
Discharge Data
Date of Admission: 12/22/24
Date of Discharge: 12/24/24
-
Pending Results: No
Hospital Course
64-year-old male past medical history of renal cancer status post metastasis to the brain and lungs, hypothyroidism, diabetes mellitus, MARISELA on CPAP, CKD who is presented with shortness of breath hemoptysis. Patient underwent right lower extremity
ultrasound was found to be positive for DVT. CT of the chest with bilateral pulmonary embolism. Echocardiogram was negative for right ventricular strain. Patient was started on IV heparin. Patient underwent MRI of the brain and has malignancy
with metastases to the brain. Patient had MRI on October 07 which showed patient with 2 brain lesion which were right frontal lobe and right parietal cortex. One of the lesion was decreasing in size. MRI brain w/wo 12/23/24-Intratracheal metastatic
disease with a 5 mm peripherally enhancing lesion in the inferior right frontal lobe with associated mild surrounding edema. There is additional punctate enhancing focus within the inferior left occipital lobe consistent with an additional small
metastasis. Discussed with pulmonary who discussed with patient radiation oncology who stated is okay for patient to be transition off IV heparin to Eliquis. Patient was tolerating Eliquis without any difficulty. Patient was also started on IV
fluids upon admission as patient received IV contrast. Creatinine down trended. Patient was ambulating in the room without any difficulty. No tachycardia was noted. Patient was not requiring oxygenation was stable on room air. Patient was
tolerating diet. Patient be discharged on p.o. Eliquis. Patient to follow-up with his primary oncologist for further anticoagulation management and MRI of the brain finding. All patient questions were answered and he was agreeable and amenable to
discharge planning.
Discharge Plan
-
Patient Disposition: Home (Routine Discharge)
Discharge Diagnosis/Procedures: Severe right lower extremity deep venous thrombosis
Acute bilateral pulmonary embolism
Condition: Fair
Diet: Diabetic, Carb Controlled
Activity: As tolerated and No strenuous activity
Driving Restrictions: As prior to admission
Activity Restrictions/Additional Instructions:
Follow-up with your oncologist for further anticoagulation management and in regards for MRI of the brain finding.
Instructions: Pulmonary embolism (blood clot in the lung), Deep vein thrombosis (blood clot in the leg), Apixaban
Referrals:
Blaze Vazquez CRNP [Family Provider, General] - in less than 1 week
Additional Discharge Medication Instructions: Take Eliquis 10 mg (2 tabs) twice a day for 6 days then 5 mg (1tab) twice a day.
Prescriptions:
New
Eliquis 5 mg Tablet
See Rx Instructions .ROUTE .COMPLEX 30 Days Qty: 70 0RF
Rx Instructions:
Take 10mg (2tabs) BID for 6 days then 5mg (1tab) BID.
Continued
potassium citrate 15 mEq Tablet Extended Release
15 meq PO BID
cyanocobalamin (vitamin B-12) 1,000 mcg Tablet
1,000 mcg PO DAILY
lisinopril 40 mg Tablet
20 mg PO HS
Rx Instructions:
12/22 on hold until
cholecalciferol (vitamin D3) [Vitamin D3] 25 mcg (1,000 unit) Tablet
25 mcg PO DAILY
Inlyta 1 mg Tablet
2 mg PO BID
Rx Instructions:
on hold until
coQ10 (ubiquinol) 100 mg Capsule
100 mg PO DAILY
levothyroxine 50 mcg Tablet
50 mcg PO DAILY
rosuvastatin 20 mg Tablet
20 mg PO HS
glucosamine-chondroitin 750-600 mg Tablet
1 tab PO BID
dapagliflozin propanediol [Farxiga] 10 mg Tablet
10 mg PO HS
repaglinide 1 mg tablet
1 mg PO TID @ 0800,1200,1700
Discharge Orders:
Discharge Patient (As Directed); Ordered 12/24/24
Ordered By: Josh Mcduffie
Discharge Date and Time
Discharge Date/Time: 12/24/24 13:00
Print Language: DIVEHI
--- NOTE | 2024-12-24 11:15 | W.PN.PUL3 ---
Today's Communication / Plan
-
- Heparin transition to Eliquis
- Recommend long-term anticoagulation for now
- Patient can be discharged home from pulmonary standpoint, outpatient follow-up with [facility] pulmonary clinic
Assessment
-
Patient is a very pleasant 66-year-old gentleman with known history of renal cell carcinoma, metastatic currently on immunotherapy with brain metastasis who presented to emergency room for evaluation of right-sided pleuritic chest pain and trace
hemoptysis. Patient over the last 4 days reports an episode of cramping of his right leg and also developing some right-sided chest discomfort which tend to be worse when he takes a deep breath. He reported mild cough and trace hemoptysis. He had
an outpatient D-dimer tested which was elevated and he was referred to emergency room for further evaluation. Workup here included a right lower extremity DVT noted on Doppler examination and also right-sided pulmonary embolism with pulmonary
infiltrates concerning for infarction as well as trace right-sided pleural effusion. Patient was admitted to the hospitalist service and was started on IV heparin. Pulmonary consultation was requested for further input.
Patient denies any prior history of DVT or PE. No family history of VTE events either. Patient reports driving to [place] which included about a 4-hour drive and having an episode of cramping in his right leg which I suspect might be the initial
presentation of his DVT noted in the right leg. He also drove to [place]. No recent hospitalization or surgeries or prolonged immobility reported otherwise.
#1. Acute DVT and PE
- Underlying risk factor include metastatic renal cell carcinoma as well as recent car rides to [place] in [place] requiring [address] of [address] on certain days.
- Patient had been on heparin infusion, now transition to Eliquis. No RV strain noted on imaging, troponin is normal. Patient is hemodynamically stable and not requiring any supplemental oxygen
- Echocardiogram reviewed, normal RV size and function.
- With patient's prior history of brain metastasis, MRI was pursued which showed 2 areas suggestive of metastasis. Case discussed with patient's radiation oncologist on 12/23, considering patient has been treated for these metastatic lesions with
radiation, recommendation was to continue anticoagulation, heparin was then switched to Eliquis
- In the setting of underlying malignancy, likely patient patient will need long-term anticoagulation. 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
- Updated patient regarding signs and symptoms to watch for considering increased risk of intracranial hemorrhage with anticoagulation in the setting of brain metastasis particularly with history of renal cell carcinoma
#2. Pulmonary infiltrate, suspect infarction with trace pleural effusion
- Pulmonary infiltrates appear to be in the same part of the lung as affected by pulmonary embolism. Otherwise no cough, normal WBC count and patient is afebrile, hold off antibiotics for now. Saturating 91 to 96% on room air.
- This will need to be followed radiologically and clinically as outpatient
#3. h/o Renal cell CA with brain metastasis
- Chronically has been on Inlyta and Keytruda. S/p right nephrectomy in 07/2022.
- S/p radiation therapy for brain metastasis
- Follows up with oncologist both medical and radiation at [facility]
#4. H/o MARISELA on CPAP
- Follows up with [facility] pulmonary clinic
- Continue nightly CPAP
#5. H/o Childhood asthma
- Resolved as he grew up, no current symptoms suggestive of hyperreactive airway disease
Other medical diagnoses:
- Hyperlipidemia
- Hypothyroidism
- Diabetes
- Chronic kidney disease
- Obesity with BMI 36.2
Patient will resume follow-up with [facility] pulmonary clinic, Dr Haq in about 4-6 weeks time.
Total time spent on this consultation/encounter _45___ minutes which includes review of history, physical exam, medications, laboratory data, personal review of imaging, extensive review of outpatient records, discussion with care team and
respiratory therapy
Data:
CT-PE 12/2024: Findings compatible with pulmonary embolism, small to moderate volume, most prominent extending into right lower lobe pulmonary arterial branches, as noted above.
No findings to suggest right heart strain.
Some right lower lobe opacification at least in part could represent subsegmental atelectasis, cannot exclude developing pulmonary infarct. Likely tiny right pleural effusion.
US LE 12/2024: Extensive right lower extremity deep venous thrombosis
[facility] 03/2023: 1. Nonobstructive coronary artery disease with recent normal Lexiscan Myoview stress study
ECHO 10/2022: Normal left ventricular size, wall thickness and systolic function. No regional
wall motion abnormalities are seen. LV ejection fraction is 55-60% by Benson's
method of discs. Normal diastolic function.
Normal right ventricular size and function.
No significant valvular disease.
No prior study available for comparison.
Subjective Data
-
Date of Service:
Date of Service: December 24, 2024
Subjective:
Patient comfortably sitting in bed in no acute distress, doing well on room air
Review of Systems
Genitourinary: Other (No new pulmonary symptoms reported)
Objective Data
Data Reviewed
Vital Signs / I&O / Oxygen:
Vital Signs
Temp Pulse Resp BP Pulse Ox
98.7 F 75 26 131/68 95
12/24/24 07:23 12/24/24 10:42 12/24/24 10:42 12/24/24 10:42 12/24/24 10:42
Intake and Output
12/23/24 12/24/24 12/25/24
06:59 06:59 06:59
Intake Total 340 / 340
Output Total 650 / 650 1000 / 1000 550 / 550
Balance -310 / -310 -1000 / -1000 -550 / -550
SaO2 95
Physical Exam
General: Comfortable
HEENT: Normocephalic
Cardiovascular: S1-S2
Respiratory: Clear
GI: Soft and Non Distended
Neurology: Awake and Alert
Skin: Warm
Labs/Micro/Reports
Lab Data
12/24/24 04:17
12/24/24 04:17
Laboratory Results
12/23/24 12/24/24
16:54 04:17
PT 16.8 H
INR 1.31
APTT 77.4 H
--- NOTE | 2024-12-24 12:56 | PTCARENOTE ---
Reviewed all d.c. info and instructions with pt. Reviewed [facility]ort[facility] instructions in writing and verbally. Pt read back and understands. Pt with no driving restrictions. PCT took pt to his car.
== END 2024-12-24 13:00 | disposition home or self-care (01) | DRG 299 ==
LOC: IMU 19:27
PROVIDERS: Registered Nurse; ADMITTING PHYSICIAN Hospitalist; ATTENDING PHYSICIAN Hospitalist; EMERGENCY PHYSICIAN Emergency Medicine; FAMILY PHYSICIAN Nurse Practitioner Family; OTHER PHYSICIAN Internal Medicine
DX: I82.431 Acute embolism and thrombosis of right popliteal vein (principal); I26.99 Other pulmonary embolism without acute cor pulmonale; C64.9 Malignant neoplasm of unspecified kidney, except renal pelvis; R04.2 Hemoptysis; C78.00 Secondary malignant neoplasm of unspecified lung; C79.31 Secondary malignant neoplasm of brain; E87.1 Hypo-osmolality and hyponatremia; I82.411 Acute embolism and thrombosis of right femoral vein; I82.441 Acute embolism and thrombosis of right tibial vein; I82.451 Acute embolism and thrombosis of right peroneal vein; E11.22 Type 2 diabetes mellitus with diabetic chronic kidney disease; J45.909 Unspecified asthma, uncomplicated; E11.42 Type 2 diabetes mellitus with diabetic polyneuropathy; E66.9 Obesity, unspecified; H91.90 Unspecified hearing loss, unspecified ear; G47.33 Obstructive sleep apnea (adult) (pediatric); M19.90 Unspecified osteoarthritis, unspecified site; K58.9 Irritable bowel syndrome, unspecified; E78.00 Pure hypercholesterolemia, unspecified; I25.10 Atherosclerotic heart disease of native coronary artery without angina pectoris; E03.9 Hypothyroidism, unspecified; R59.0 Localized enlarged lymph nodes; N18.32 Chronic kidney disease, stage 3b; I12.9 Hypertensive chronic kidney disease with stage 1 through stage 4 chronic kidney disease, or unspecified chronic kidney disease; Z92.21 Personal history of antineoplastic chemotherapy; Z90.5 Acquired absence of kidney; Z79.890 Hormone replacement therapy; Z87.442 Personal history of urinary calculi; Z87.19 Personal history of other diseases of the digestive system; Z86.0100 Personal history of colon polyps, unspecified; Z68.36 Body mass index [BMI] 36.0-36.9, adult; Z91.018 Allergy to other foods; Z79.84 Long term (current) use of oral hypoglycemic drugs; Z92.3 Personal history of irradiation
CPT/HCPCS: 36415; 70553; 71046; 71275; 80048; 80053; 82962; 83036; 83880; 84484; 85025; 85379; 85610; 85730; 93005; 93306; 93970; 96365; 96366; 99285; A9575; Q9967

== ENCOUNTER → 2025-01-29 14:29 | Outpatient (REF) | payer MEDICARE, SELFPAY | LOC: RAD 14:29 | PROVIDERS: ATTENDING PHYSICIAN Internal Medicine Critical Care Medicine; FAMILY PHYSICIAN Internal Medicine Geriatric Medicine | DX: R04.2 Hemoptysis (principal) | CPT/HCPCS: 71046 ==

== ENCOUNTER → 2025-02-09 09:24 | Outpatient (REF) | payer MEDICARE, SELFPAY ==
[2025-02-09 12:47] LABS: Albumin 4.6 g/dl (3.5-5.0); Blood Urea Nitrogen 52 mg/dl (9-20); Calcium 9.6 mg/dl (8.4-10.2); Carbon Dioxide 13 mmol/L (22-30); Chloride 109 mmol/L (98-107); Glucose 114 mg/dl (70-99); Potassium 5.3 mmol/L (3.5-5.1); Sodium 136 mmol/L (135-145); eGFR 36.13
== END ==
LOC: REG 09:24
PROVIDERS: ATTENDING PHYSICIAN Specialist; FAMILY PHYSICIAN Internal Medicine Geriatric Medicine
DX: N28.89 Other specified disorders of kidney and ureter (principal); N20.0 Calculus of kidney; I10 Essential (primary) hypertension; E78.5 Hyperlipidemia, unspecified; Z90.5 Acquired absence of kidney
CPT/HCPCS: 36415; 80048; 80069

== ENCOUNTER → 2025-02-17 12:54 | Outpatient (REF) | payer MEDICARE, SELFPAY ==
[2025-02-17 15:22] LABS: Blood Urea Nitrogen 35 mg/dl (9-20); Calcium 9.0 mg/dl (8.4-10.2); Carbon Dioxide 14 mmol/L (22-30); Chloride 111 mmol/L (98-107); Glucose 107 mg/dl (70-99); Potassium 4.7 mmol/L (3.5-5.1); Sodium 134 mmol/L (135-145); eGFR 32.23
== END ==
LOC: REG 12:54
PROVIDERS: ATTENDING PHYSICIAN Specialist; FAMILY PHYSICIAN Internal Medicine Geriatric Medicine
DX: I10 Essential (primary) hypertension (principal); G62.9 Polyneuropathy, unspecified; R77.8 Other specified abnormalities of plasma proteins; N18.32 Chronic kidney disease, stage 3b; C64.1 Malignant neoplasm of right kidney, except renal pelvis
CPT/HCPCS: 36415; 80048

== ENCOUNTER → 2025-02-25 11:01 | Outpatient (REF) | payer MEDICARE, SELFPAY ==
[2025-02-25 12:00] LABS: Hematocrit 45.4 % (39.0-52.0); Hemoglobin 15.0 g/dL (13.0-18.0); Mean Corp Hgb Conc. 33.0 g/dL (33.0-37.0); Mean Corpuscular Volume 88.8 fL (80.0-94.0); Nucleated Red Blood Cells % 0 % (-); Platelet Count 137 10^3/uL (130-400); Red Cell Dist. Width 15.8 % (11.5-14.5)
[2025-02-25 12:19] LABS: ALT (SGPT) 37 U/L (0-50); AST (SGOT) 27 U/L (17-59); Albumin 4.3 g/dl (3.5-5.0); Alkaline Phosphatase 66 U/L (38-126); Blood Urea Nitrogen 27 mg/dl (9-20); Calcium 9.7 mg/dl (8.4-10.2); Carbon Dioxide 27 mmol/L (22-30); Chloride 104 mmol/L (98-107); Glucose 115 mg/dl (70-99); HDL Cholesterol 46 mg/dl; LDL Cholesterol, Calculated 111 mg/dl; Potassium 5.6 mmol/L (3.5-5.1); Sodium 136 mmol/L (135-145); Total Protein 7.0 g/dl (6.3-8.2); Very Low Density Lipoprotein 43 mg/dl (0-30); eGFR 32.23
[2025-02-25 12:20] LABS: Urine Character Clear (Clear)
[2025-02-25 12:33] LABS: Vitamin D, 25-OH*** 39.1 ng/mL (30-80)
[2025-02-25 13:34] LABS: Glycohemoglobin (HgbA1c) 7.1 % (4.0-5.9)
[2025-02-25 14:43] LABS: Urine Squamous Cell 0-2 /LPF (Few)
[2025-02-25 14:44] LABS: Urine Red Blood Cell 0-2 /HPF (0-2)
== END ==
LOC: REG 11:01
PROVIDERS: ATTENDING PHYSICIAN Specialist; FAMILY PHYSICIAN Internal Medicine Geriatric Medicine
DX: E11.22 Type 2 diabetes mellitus with diabetic chronic kidney disease (principal); C64.1 Malignant neoplasm of right kidney, except renal pelvis; Z90.5 Acquired absence of kidney; N18.32 Chronic kidney disease, stage 3b; I10 Essential (primary) hypertension; E78.5 Hyperlipidemia, unspecified; G47.30 Sleep apnea, unspecified; E66.9 Obesity, unspecified; G62.9 Polyneuropathy, unspecified; E55.9 Vitamin D deficiency, unspecified; M17.12 Unilateral primary osteoarthritis, left knee; M25.561 Pain in right knee; Z13.89 Encounter for screening for other disorder; Z23 Encounter for immunization; E66.812 Obesity, class 2
CPT/HCPCS: 36415; 80053; 80061; 81003; 81015; 82306; 83036; 85025

== ENCOUNTER → 2025-03-10 13:03 | Outpatient (REF) | payer MEDICARE, SELFPAY | LOC: REG 13:03 | PROVIDERS: ATTENDING PHYSICIAN Internal Medicine Critical Care Medicine | DX: I26.99 Other pulmonary embolism without acute cor pulmonale (principal) | CPT/HCPCS: 71046 ==

== ENCOUNTER → 2025-03-15 06:48 | Outpatient (REF) | payer MEDICARE, SELFPAY | LOC: RAD 06:48 | PROVIDERS: ATTENDING PHYSICIAN Internal Medicine Geriatric Medicine | DX: G54.0 Brachial plexus disorders (principal) | CPT/HCPCS: 93931 ==

== ENCOUNTER → 2025-04-02 08:52 | Outpatient (REF) | payer MEDICARE, SELFPAY ==
[2025-04-02 09:52] LABS: Blood Urea Nitrogen 30 mg/dl (9-20); Calcium 9.6 mg/dl (8.4-10.2); Carbon Dioxide 25 mmol/L (22-30); Chloride 106 mmol/L (98-107); Glucose 155 mg/dl (70-99); Potassium 5.5 mmol/L (3.5-5.1); Sodium 139 mmol/L (135-145); eGFR 32.23
== END ==
LOC: REG 08:52
PROVIDERS: ATTENDING PHYSICIAN Specialist; FAMILY PHYSICIAN Internal Medicine Geriatric Medicine
DX: C84.90 Mature T/NK-cell lymphomas, unspecified, unspecified site (principal); I10 Essential (primary) hypertension; E78.5 Hyperlipidemia, unspecified
CPT/HCPCS: 36415; 80048